=== PATIENT | male | born 1945 | race Caucasian/White ===

== ENCOUNTER 2023-02-16 23:16 | Inpatient (IN) | payer MEDICARE ==
[~2023-02-16] VITALS: Ht 175.3 cm; Wt 83.3 kg
[~2023-02-16 23:16] MED LIST: ASPI81EC PO; CALCA500CH PO; NIAC500 PO; RANI150 PO
[2023-02-16] MEDS ORDERED: MULVITA PO (23:35)
[2023-02-16] MEDS ORDERED: LISINOPRIL-HCT1 EACH PO (23:35)
[2023-02-16] MEDS ORDERED: LOVASTATIN20 MG PO (23:35)
[2023-02-16] MEDS ORDERED: OMEP20ER PO (23:35)
[2023-02-16] MEDS ORDERED: Vitamin D1000 UNI1 (23:36)
[2023-02-16 23:43] LABS: BASOPHILS ABSOLUTE AUTO 0.05 K/mm3 (0.00-0.23); BASOPHILS PERCENT AUTO 1 % (0-2); EOSINOPHILS PERCENT AUTO 4 % (0-6); Hematocrit 42.1 % (37.0-53.0); Hemoglobin 14.7 g/dL (13.5-17.5); IMMATURE GRAN ABSOLUTE AUTO 0.02 K/mm3 (0.00-0.10); IMMATURE GRAN PERCENT AUTO 0 % (0-1); LYMPHOCYTES ABSOLUTE AUTO 2.37 K/mm3 (0.84-5.20); LYMPHOCYTES PERCENT AUTO 32 % (21-46); MONOCYTES ABSOLUTE AUTO 0.89 K/mm3 (0.16-1.47); MONOCYTES PERCENT AUTO 12 % (4-13); Mean Corpuscular HGB 33.7 pg (26.0-34.0); Mean Corpuscular HGB Conc 34.9 g/dL (31.5-36.5); Mean Corpuscular Volume 97 fL (80-100); Mean Platelet Volume 9.5 fL (9.1-12.4); NEUTROPHILS ABSOLUTE AUTO 3.83 K/mm3 (1.96-9.15); NEUTROPHILS PERCENT AUTO 51 % (41-73); Platelet Count 195 K/mm3 (150-400); RDW Coefficient Variation 11.6 % (11.7-14.2); Red Blood Cell Count 4.36 M/mm3 (4.30-5.90); White Blood Cell Count 7.46 K/mm3 (4.00-11.30)
[2023-02-17] VITALS (54 sets, daily range): BP systolic 97–165; BP diastolic 58–101
[2023-02-17 00:08] LABS: Alanine Aminotransfer (ALT/SGP 28 U/L (12-78); Albumin/Globulin Ratio 1.4 (0.8-1.8); Alk Phos 52 U/L (50-136); Anion Gap 6 mmol/L (6-16); Aspartate Aminotrans (AST/SGOT 25 U/L (12-37); Bilirubin, Total 0.4 mg/dL (0.1-1.0); Blood Urea Nitrogen 21 mg/dL (8-24); CO2, Blood 26 mmol/L (21-32); Calcium, Blood 9.3 mg/dL (8.5-10.1); Chloride, Blood 109 mmol/L (98-108); Creatinine, Blood 1.31 mg/dL (0.60-1.20); Ethanol (Alcohol), Blood, Med <3 mg/dL; Globulin, Blood 2.9 g/dL (2.2-4.0); Glomerular Filtration Rate 55 (60-); Glucose, Blood 122 mg/dL (70-99); Potassium, Blood 3.9 mmol/L (3.5-5.5); Sodium, Blood 141 mmol/L (136-145); Total Protein, Blood 6.9 g/dL (6.4-8.2)
[2023-02-17 00:14] LABS: U Amphetamine Screen Not Detected; U Barbituate Screen Not Detected; U Benzodiazapine Screen Not Detected; U Buprenorphine Screen Not Detected; U Cannabinoids Screen Not Detected; U Cocaine Screen Not Detected; U Methadone Screen Not Detected; U Methamphetamine Screen Not Detected; U Opiates Screen Not Detected; U Oxycodone Screen Not Detected; U Phencyclidine Screen Not Detected; U Propoxyphene Screen Not Detected
--- NOTE | 2023-02-17 01:40 | NUR ---
REPORT RECIEVED FROM DIRECTOR OF REHABILITATIVE SERVICES AT THIS TIME.
--- NOTE | 2023-02-17 01:55 | NUR ---
ASSUMED CARE OF PT AT THIS TIME. PT ARRIVED TO ICU ESCORTED BY KEN MONTES FROM ER. A/O X4. PT UNABLE TO SPEAK. NODS HEAD TO YES AND NO QUESTIONS. PT IS ABLE TO SIGN NAME, WALKS ON HIS OWN WITHOUT DIFFICULTY. ONLY COMPLAINT IS SLIGHT NECK PAIN (PT SPOUSE STATES THAT IS CHRONIC FOR PT). VITALS WNL. >93% RA. FAMILY IN WAITING AREA. ALTIPASE GIVEN IN ER AT 0038 NS RUNNING AT 75 MLS/HR SEE FULL ASSESSMENT FOR FURTHER DETAILS.
[2023-02-17 03:54] LABS: BASOPHILS ABSOLUTE AUTO 0.03 K/mm3 (0.00-0.23); BASOPHILS PERCENT AUTO 0 % (0-2); EOSINOPHILS ABSOLUTE AUTO 0.08 K/mm3 (0.00-0.68); EOSINOPHILS PERCENT AUTO 1 % (0-6); Hematocrit 42.2 % (37.0-53.0); Hemoglobin 14.8 g/dL (13.5-17.5); IMMATURE GRAN ABSOLUTE AUTO 0.01 K/mm3 (0.00-0.10); IMMATURE GRAN PERCENT AUTO 0 % (0-1); LYMPHOCYTES ABSOLUTE AUTO 1.34 K/mm3 (0.84-5.20); LYMPHOCYTES PERCENT AUTO 17 % (21-46); MONOCYTES ABSOLUTE AUTO 0.69 K/mm3 (0.16-1.47); MONOCYTES PERCENT AUTO 9 % (4-13); Mean Corpuscular HGB 34.2 pg (26.0-34.0); Mean Corpuscular HGB Conc 35.1 g/dL (31.5-36.5); Mean Corpuscular Volume 98 fL (80-100); Mean Platelet Volume 9.7 fL (9.1-12.4); NEUTROPHILS ABSOLUTE AUTO 5.56 K/mm3 (1.96-9.15); NEUTROPHILS PERCENT AUTO 72 % (41-73); Platelet Count 191 K/mm3 (150-400); RDW Coefficient Variation 11.6 % (11.7-14.2); RDW Standard Deviation 41.9 fL (35.1-46.3); Red Blood Cell Count 4.33 M/mm3 (4.30-5.90); White Blood Cell Count 7.71 K/mm3 (4.00-11.30)
[2023-02-17 04:16] LABS: Albumin, Blood 3.9 g/dL (3.4-5.0); Albumin/Globulin Ratio 1.3 (0.8-1.8); Bilirubin, Total 0.4 mg/dL (0.1-1.0); Bun/Creatinine Ratio 17.5 (12.0-20.0); Calcium, Blood 9.2 mg/dL (8.5-10.1); Creatinine, Blood 1.14 mg/dL (0.60-1.20); Globulin, Blood 3.1 g/dL (2.2-4.0); Potassium, Blood 4.1 mmol/L (3.5-5.5)
--- NOTE | 2023-02-17 06:19 | NUR ---
END OF SHIFT SUMMARY A/O X4 WITH NO DECREASE IN NEURO STATUS. PT USES CALL LIGHT APPROPRIATELY. CONTINUED EXP APHASIA. NO C/O CP/SOB. RESP- SLIGHT COUGH NOTED THIS AM THAT IS NONPRODUCTIVE. CARDIAC- NO ACUTE CHANGES. SR WITH HR 60'S. SBP 110'S-120'S. GI,- BM X2. NPO. NO OTHER ACUTE CHANGES. WILL CONTINUE TO MONITOR UNTIL REPORT GIVEN TO AM RN.
--- NOTE | 2023-02-17 07:36 | NUR ---
[place] of Care: Care assumed at 0700hr. Patient alert, tracking staff throughout room. Remains non-verbal at this time. Nod's head yes/no appropriately, follows all commands. Neuro exam shows non-verbal, and slight droop to rt side of face when smiling or raising eye brows. All other neuro exam WNL. Denies pain, discomfort, SOB, or dyspnea VSS, spO2-95% on RA. at bedside, all questions and concerns answered to her satisfaction. [facility] at bedside for swallow evaluation at this time. Will continue to monitor.
--- NOTE | 2023-02-17 09:38 | NUR ---
Neuro Assessment: [place] assessment remains unchanged from previous assessment, see assumption of care note. Will continue to monitor.
--- NOTE | 2023-02-17 18:13 | NUR ---
Shift Summary: No significant changes throughout shift. No significant changes to neuro status. Patient able to say "yeah" x2 this shift, otherwise remains non-verbal. Continues to nod head yes/no appropriately. Slight facial droop to rt side when asked to smile, unchanged from start of shift. VS remain stable. Tolerating PO intake without difficulty. MRI obtained this afternoon without difficulty. Results called to Dr. Kwong, instructed no further interventions or escalation of care needed at this time. Will continue to monitor until report to NOC shift RN.
--- NOTE | 2023-02-17 19:48 | NUR ---
ASSUMED CARE PT IS A&O X3-4; COMMUNICATES WELL THROUGH GESTURING, SIGN BOARD, NODDING/SHAKING HEAD. MARKER AND PAPER/CLIPBOARD GIVEN TO PT AND PT ABLE TO WRITE LEGIBLY. PT AT START OF SHIFT COMPLAINED OF ACID REFLUX AND TUMS WAS GIVEN. NO COMPLAINTS AT THIS TIME; PT SMILED AND NODDED WHEN ASKED HOW PT WAS FEELING. DENIED FEELING ANY PAIN. SPO2 >92% ON RA; MAP >65; NSR. SLIGHT DROOPING OF RIGHT SIDE NOTED. RIGHT RAIL CAR OPERATOR STRENGTH SLIGHTLY WEAKER THAN LEFT. STRENGTH EQUAL BLE. DAUGHTER AT BEDSIDE.
[2023-02-17 23:09] LABS: Source, Urine Clean Catch
[2023-02-17 23:28] LABS: Appearance, Urine Clear (Clear); Bilirubin, Urine Neg (Neg); Blood, Urine Neg (Neg); Color, Urine Yellow (P-Yellow); Glucose Qualitative, Urine Neg (Neg); Ketones, Urine Neg (Neg); Leukocyte Esterase, Urine Neg (Neg); Nitrite, Urine Neg (Neg); Protein, Urine Neg (Neg); Urobilinogen, Urine NORM (Normal)
[2023-02-18] VITALS (11 sets, daily range): BP systolic 109–149; BP diastolic 52–85
--- NOTE | 2023-02-18 06:09 | NUR ---
SHIFT SUMMARY PT SLEPT THROUGHOUT NIGHT W/ DAUGHTER AT BEDSIDE. AWAKE TO USE RESTROOM ONCE AND FOR NEURO CHECK. PT REMAINS ALERT AND ORIENTED X3-4 AND CONTINUES TO COMMINUCATE WELL/APPROPRIATELY. NO ACUTE EVENTS OVERNIGHT. DAUGHTER STILL AT BEDSIDE.
[2023-02-18] MEDS ORDERED: OMEP20ER PO (09:14)
[2023-02-18] MEDS ORDERED: Lovastatin20 MG PO (09:15)
[2023-02-18] MEDS ORDERED: Aspir 8181 MG PO (09:15)
[2023-02-18] MEDS ORDERED: Lisinopril-Hct1 EAC4 PO (09:16)
--- NOTE | 2023-02-18 13:09 | NUR ---
REASSESSMENT PT HAS BEEN RESTING IN BED THROUGHOUT THE MORNING. HE IS GETTING UP TO THE BATHROOM WHEN NEEDED WITH MINIMAL ASSISTANCE. 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 THE R STARTS OUT SLIGHTLY WEAKER THAN THE LEFT, BUT EVENS OUT ONCE PT IS FULLY SQUEEZING. BOTH FEET ARE STRONG. TONGUE THRUST MIDLINE. STILL HAS SLIGHT R SIDED FACIAL DROOP AND PT IS STILL HAVING DYSPHASIA. PT IS ONLY SPEAKING MINIMALLY AND JUST RESORTING TO NODDING AND SHAKING HIS HEAD OR USING HAND GESTURES. EATING WITHOUT DIFFICULTY. PUPILS EQUAL, ABOUT 2MM. LUNGS CLEAR, RA WITH SPO2 100%, SR, BP STABLE. FAMILY AT THE BEDSIDE.
--- NOTE | 2023-02-18 17:14 | NUR ---
SHIFT SUMMARY PT HAS REMAINED ALERT AND ORIENTED THROUGHOUT THE SHIFT. STILL HAS A SLIGHT R SIDED FACIAL DROOP AND R HAND STRENGTH IS SLIGHTLY WEAKER THAN THE L, BUT BOTH SWIM COACH ARE STILL STRONG. HE CONTINUES TO USE NODDING OR SHAKING HIS HEAD AND HAND GESTURES TO COMMUNICATE. HE HAS BEEN WRITING SOME, BUT HE APPEARS TO STRUGGLE WITH THAT A LITTLE. HIS LUGNS ARE CLEAR, RA. EATING WELL. HOME DSOE OF PRILOSEC STARTED PER DR. DUNCAN. VOIDING IN THE TOILET AND HAD A BM TODAY. WENT FOR A WALK AROUND THE UNIT AND PT TOELRATED WELL. PLAN FOR PT TO TAKE A SHOWER SOON SHOWER IS CLEANED. CONTINUING TO [facility].
--- NOTE | 2023-02-18 18:44 | NUR ---
TRANSFER PT TRANSFERRED TO 337 VIA . REPORT GIVEN TO JYOTI MCINTOSH. ALL BELONGINGS TRANSFERRED WITH PT AND PT TOLERATED TRANSFER WELL. PT'S , ROSITA, NOTIFIED OF PT'S NEW ROOM NUMBER.
--- NOTE | 2023-02-19 03:02 | NUR ---
CROTCH PIECE BASTER SUMMARY VSS. AM RN REPORTED PT CAME TO FLOOR FROM THE ICU POST CVA. RIGHT SIDE WEAKER THAN LEFT. SLIGHT RIGHT FACIAL DROOP AND SPEECH ISSUES. PT RELUCTANT TO TALK - AM RN VOICED HE WAS EMBARRASSED TO TALK DUE TO GARBLED SPEECH. ROOM AIR, CLEAR TO AUSCULTATION. ABLE TO DRINK FLUIDS SITTING AT 90 DEGREE ANGLE. VOICED FEELING IN ALL 4 EXT. DENIED PAIN. NEURO CHECKS APPEAR UNCHANGED, OTHER THAN SEEMS TO BE MORE INCLINED TO TRY TO TALK WITH ENCOURAGMENT. SPEECH GARBLED WITH FEW WORDS VOICED. HAS BEEN RESTING QUIETLY WITH FEW INTERRUPTIONS. CALL LIGHT IN REACH. WILL CONTINUE TO MONITOR
[2023-02-19 04:04] VITALS: BP 149/79
[2023-02-19 05:17] LABS: BASOPHILS ABSOLUTE AUTO 0.03 K/mm3 (0.00-0.23); BASOPHILS PERCENT AUTO 0 % (0-2); EOSINOPHILS ABSOLUTE AUTO 0.31 K/mm3 (0.00-0.68); EOSINOPHILS PERCENT AUTO 4 % (0-6); Hematocrit 42.4 % (37.0-53.0); Hemoglobin 14.5 g/dL (13.5-17.5); IMMATURE GRAN ABSOLUTE AUTO 0.02 K/mm3 (0.00-0.10); IMMATURE GRAN PERCENT AUTO 0 % (0-1); LYMPHOCYTES ABSOLUTE AUTO 1.68 K/mm3 (0.84-5.20); LYMPHOCYTES PERCENT AUTO 23 % (21-46); MONOCYTES ABSOLUTE AUTO 0.84 K/mm3 (0.16-1.47); MONOCYTES PERCENT AUTO 12 % (4-13); Mean Corpuscular HGB 33.6 pg (26.0-34.0); Mean Corpuscular HGB Conc 34.2 g/dL (31.5-36.5); Mean Corpuscular Volume 98 fL (80-100); Mean Platelet Volume 9.8 fL (9.1-12.4); NEUTROPHILS ABSOLUTE AUTO 4.34 K/mm3 (1.96-9.15); NEUTROPHILS PERCENT AUTO 60 % (41-73); Platelet Count 185 K/mm3 (150-400); RDW Coefficient Variation 11.7 % (11.7-14.2); RDW Standard Deviation 42.5 fL (35.1-46.3); Red Blood Cell Count 4.32 M/mm3 (4.30-5.90); White Blood Cell Count 7.22 K/mm3 (4.00-11.30)
[2023-02-19 05:59] LABS: Albumin, Blood 3.5 g/dL (3.4-5.0); Albumin/Globulin Ratio 1.1 (0.8-1.8); Bilirubin, Total 0.5 mg/dL (0.1-1.0); Bun/Creatinine Ratio 13.6 (12.0-20.0); Calcium, Blood 9.3 mg/dL (8.5-10.1); Creatinine, Blood 1.1 mg/dL (0.60-1.20); Globulin, Blood 3.2 g/dL (2.2-4.0); Potassium, Blood 4.2 mmol/L (3.5-5.5); Total Protein, Blood 6.7 g/dL (6.4-8.2)
[2023-02-19 07:19] VITALS: BP 130/77
[2023-02-19] MEDS ORDERED: ATOR80 PO (14:50)
[2023-02-19] MEDS ORDERED: CLOP75 PO (14:51)
[2023-02-19] MEDS ORDERED: PANT40 PO (14:53)
--- NOTE | 2023-02-19 15:15 | NUR ---
SHIFT SUMMARY PATIENT DISCHARGED TO HOME WITH HOME HEALTH. PATIENT INDEPENDENT IN THE ROOM. ABLE TO MAKE VOCAL SOUNDS AND AN OCCASIONAL SLURRED WORD. DISCHARGE INSTRUCTIONS REVIEWED WITH AND PATIENT. ALL 3 IV'S DC'D. BELONGINGS SENT HOME WITH PATIENT. PATIENT TAKEN OUT VIA WHEELCHAIR.
== END 2023-02-19 15:19 | disposition home health service (06) | DRG 63 ==
LOC: ER 23:16 → ICUE 23:17 → MEDS 02-18 18:35 → ENPENDDIS 02-19 14:50 → MEDS 02-19 15:19
PROVIDERS: Internal Medicine; Student in an Organized Health Care Education/Training Program; ADMIT Internal Medicine
DX: I63.9 Cerebral infarction, unspecified (principal); R73.03 Prediabetes; I10 Essential (primary) hypertension; E78.5 Hyperlipidemia, unspecified; K21.9 Gastro-esophageal reflux disease without esophagitis; R47.1 Dysarthria and anarthria; R27.8 Other lack of coordination; R47.01 Aphasia; H02.409 Unspecified ptosis of unspecified eyelid; R29.810 Facial weakness; Z79.899 Other long term (current) drug therapy; Z79.82 Long term (current) use of aspirin
CPT/HCPCS: 36415; 70450; 70496; 70498; 70551; 80053; 81003; 82947; 85025; 92610; 93005; 93010; 93306; 96372; 96374; 97116; 97162; 97166; 97530; 97535; 99285-25; A9270; G0378; J1650; J2997; J7030; Q9967

== ENCOUNTER → 2024-09-05 | Outpatient (CLI) | payer MEDICARE ==
[~2024-09-05] MED LIST changes: +ATOR80 PO; +Aspir 8181 MG PO; +CLOP75 PO; +LISINOPRIL-HCT1 EACH PO; +LOVASTATIN20 MG PO; +Lisinopril-Hct1 EAC4 PO; +Lovastatin20 MG PO; +MULVITA PO; +OMEP20ER PO; +PANT40 PO; +Vitamin D1000 UNI1
[2024-09-05 10:48] LABS: BASOPHILS ABSOLUTE AUTO 0.04 K/mm3 (0.00-0.23); BASOPHILS PERCENT AUTO 1 % (0-2); EOSINOPHILS ABSOLUTE AUTO 0.12 K/mm3 (0.00-0.68); EOSINOPHILS PERCENT AUTO 2 % (0-6); Hematocrit 43.4 % (37.0-53.0); IMMATURE GRAN ABSOLUTE AUTO 0.03 K/mm3 (0.00-0.10); IMMATURE GRAN PERCENT AUTO 0 % (0-1); LYMPHOCYTES ABSOLUTE AUTO 1.13 K/mm3 (0.84-5.20); LYMPHOCYTES PERCENT AUTO 16 % (21-46); MONOCYTES ABSOLUTE AUTO 0.74 K/mm3 (0.16-1.47); MONOCYTES PERCENT AUTO 10 % (4-13); Mean Corpuscular HGB 33.9 pg (26.0-34.0); Mean Corpuscular HGB Conc 34.6 g/dL (31.5-36.5); Mean Corpuscular Volume 98 fL (80-100); Mean Platelet Volume 9.5 fL (9.1-12.4); NEUTROPHILS ABSOLUTE AUTO 5.04 K/mm3 (1.96-9.15); NEUTROPHILS PERCENT AUTO 71 % (41-73); Platelet Count 218 K/mm3 (150-400); RDW Standard Deviation 43.5 fL (35.1-46.3); Red Blood Cell Count 4.42 M/mm3 (4.30-5.90)
[2024-09-05 10:49] LABS: Source, Urine Clean Catch
[2024-09-05 10:57] LABS: Bun/Creatinine Ratio 13.7 (12.0-20.0); Calcium, Blood 10.4 mg/dL (8.5-10.1); Creatinine, Blood 1.17 mg/dL (0.60-1.20)
[2024-09-05 11:00] LABS: Bacteria Not Seen /hpf; Red Blood Cells, Urine Not Seen /hpf (0-2); Squamous Epithelial Cells Rare /hpf (Few); White Blood Cells, Urine Not Seen /hpf (0-5)
== END | disposition home or self-care (01) ==
LOC: LAB SHORT 10:43 → LAB 10:43
PROVIDERS: Physician Assistant
DX: R31.9 Hematuria, unspecified (principal)
CPT/HCPCS: 80048; 81015; 85025